=== PATIENT | male | born 1940 | race African-American/Black ===

== ENCOUNTER 2019-08-22 19:41 | Inpatient (IN) | payer OTHER ==
[~2019-08-22] VITALS: Ht 193 cm; Wt 111.1 kg
[2019-08-22 19:41] VITALS: BP_SYST 100
--- NOTE | 2019-08-22 19:41 | NUR ---
Patient to ER bed 1 to gown for evaluation. Side rails up.
--- NOTE | 2019-08-22 19:45 | NUR ---
ER at bedside examining patient.
--- NOTE | 2019-08-22 19:45 | NUR ---
Arina jeffries in ED - 08/23/19 at 0013 by [email or web address] Pt on 2L NC.
--- NOTE | 2019-08-22 19:45 | NUR ---
Pt on 4L NC.
--- NOTE | 2019-08-22 19:50 | NUR ---
Pt came to the ED from [facility]. Reported was made due to patient complaint of L sided nonradating chest pain at 1900. Denies SOB, n/v/d or fever. Reports he was recently treated 6 weeks ago for pulmonary embolis. Reports he has 10/10 lower back pain as well. No other complaints/injuries noted. Will cont. to monitor .
[2019-08-22] MEDS ORDERED: NACL 0.9% 1,000 ML IV ONE ×2 (20:00→22:00)
--- NOTE | 2019-08-22 20:00 | NUR ---
Pts hemoglobin is 5.0, however pt is Yarsanism. John charge nurse spoke to Catarina how is pts emergency contact and confirmed pts zoroastrianism and cannot have blood transfusion. reports needs to talk to the family's elder. ER MD made aware.
[2019-08-22 20:19] LABS: MEAN CORPUSCULAR HEMOGLOBIN 26 pg (27-31); MEAN CORPUSCULAR HGB CONC 29 % (32-36); MEAN CORPUSCULAR VOLUME 90 fL (79.0-98.0); PLATELET COUNT (AUTO) 132 K/uL (130-430); RED CELL DISTRIBUTION WIDTH 29.2 % (9.0-15.0); WHITE BLOOD COUNT (AUTO) 7.7 K/uL (4.8-10.8)
[2019-08-22 20:24] LABS: RED BLOOD CELL COUNT(AUTO) 1.92 MIL/uL (4.2-6.2)
[2019-08-22 20:27] LABS: HEMATOCRIT 17.3 % (36-54)
--- NOTE | 2019-08-22 20:28 | NUR ---
Pt.'s arrives and updated on POC. Informed her that pt.'s status is critical with Hgb 5. She also states that based on his congregational as Jehova's Witness, pt cannot receive Blood Products. Pt is being tx at [facility] and receives Egogen 20,000 Units q MWF for Chronic Anemia. Pt.'s also states that pt has been in and out of hospitals r/t sepsis x 3 episodes where he was treated at [facility], [facility], and [facility]. Pt was Dx with PE on 07/28/19 and has since been on Eloquis. While pt was in hospital, pt was on Heparin Drip. Pt has hx Prostate CA and Pituitary Adenoma and has been on Luupron since 12/2018. Dr. Lombardo notified.
[2019-08-22] MEDS ORDERED: fentaNYL CITRATE/PF 100 MCG/2 ML AMP IVP ONE ×2 (20:30→22:00)
[2019-08-22 20:52] LABS: BAND % (MANUAL) 1 % (0-6); LYMPHOCYTES % (MANUAL) 20 % (20-46); MONOCYTES % (MANUAL) 3 % (0-11)
[2019-08-22 20:53] LABS: METAMYELOCYTES % 2 % (0-0)
[2019-08-22 20:57] LABS: INR 1.5 (0.80-1.20); POTASSIUM 4.8 mmol/L (3.5-5.1); PROTHROMBIN TIME 14.9 SECS (9.5-12.5)
[2019-08-22 21:09] LABS: ANION GAP 14 (5-15); CALCIUM 9.4 mg/dL (8.4-11.0); CHLORIDE 109 mmol/L (98-107); CREATININE 1.64 mg/dL (0.55-1.30); GLUCOSE 103 mg/dL (70-99); SODIUM SERUM 143 mmol/L (136-145); UREA NITROGEN, BLOOD 38 mg/dL (8-21)
[2019-08-22 21:13] LABS: BILIRUBIN,URINE NEGATIVE (NEGATIVE); BLOOD, URINE 1+ (NEGATIVE); CLARITY/URINE CLEAR (CLEAR); COLOR,URINE YELLOW (YELLOW); GLUCOSE,URINE NEGATIVE (NEGATIVE); KETONES,URINE NEGATIVE (NEGATIVE); LEUKOCYTE ESTERASE ,URINE NEGATIVE (NEGATIVE); NITRITE, URINE NEGATIVE (NEGATIVE); PROTEIN URINE NEGATIVE (NEGATIVE); UROBILINOGEN,URINE 0.2 (0.2-1.0)
[2019-08-22 21:16] LABS: BACTERIA,URINE None Seen /HPF (None Seen); MUCUS,URINE 1+ /LPF (None Seen); WBC,URINE 0-3 /HPF (0-3)
[2019-08-22 21:25] LABS: ALANINE AMINOTRANSFERASE 16 U/L (12-78); ALBUMIN 2.1 g/dL (3.4-4.8); ASPARTATE AMINOTRANSFERASE 141 U/L (10-37); TOTAL BILIRUBIN 0.7 mg/dL (0.0-1.0)
--- NOTE | 2019-08-22 22:00 | NUR ---
Urine output is about 50cc from rees. MAREN STANTON made aware
[2019-08-22] MEDS ORDERED: DOCU-144 PO (22:10)
[2019-08-22] MEDS ORDERED: CHOL200026 PO (22:10)
[2019-08-22] MEDS ORDERED: ALLO300T2 PO (22:10)
[2019-08-22] MEDS ORDERED: MULT-1117 (22:10)
[2019-08-22] MEDS ORDERED: SENN8.6T19 PO (22:10)
[2019-08-22] MEDS ORDERED: PRED10TA PO (22:10)
[2019-08-22] MEDS ORDERED: OXYC-580 PO (22:10)
[2019-08-22] MEDS ORDERED: FLEETMO RC (22:10)
[2019-08-22] MEDS ORDERED: BISA5TAB10 PO (22:10)
[2019-08-22] MEDS ORDERED: CALC200T47 PO (22:10)
[2019-08-22] MEDS ORDERED: POLY1POW14 MC (22:10)
[2019-08-22] MEDS ORDERED: EPOE10002 IJ (22:10)
[2019-08-22] MEDS ORDERED: AMIN30LI2 PO (22:10)
[2019-08-22] MEDS ORDERED: ACET-2165 PO (22:10)
[2019-08-22] MEDS ORDERED: BISA10SU61 RC (22:10)
[2019-08-22] MEDS ORDERED: MELA3TAB64 PO (22:10)
[2019-08-22] MEDS ORDERED: PRO40 PO (22:10)
[2019-08-22] MEDS ORDERED: SERT25TA PO (22:10)
[2019-08-22] MEDS ORDERED: ASPI-862 PO (22:10)
[2019-08-22] MEDS ORDERED: APIX5TAB4 PO (22:10)
[2019-08-22] MEDS ORDERED: MOM PO (22:10)
--- NOTE | 2019-08-22 22:13 | NUR ---
m Medication reconciliation completed with information provided by pt. Any prior medication reconciliation on file was reviewed and corrected.
--- NOTE | 2019-08-22 22:14 | NUR ---
pt is full code, POLST in chart.
--- NOTE | 2019-08-22 22:25 | NUR ---
Dr. Ramon at bedside.
--- NOTE | 2019-08-22 22:25 | NUR ---
Arina jeffries in ED - 08/22/19 at [address] Aldrich at bedside.
--- NOTE | 2019-08-22 22:28 | NUR ---
Arina jeffries in ED - 08/22/19 at [email or web address] Ramon at bedside examing pt.
--- NOTE | 2019-08-22 22:56 | NUR ---
PT went to CT scan via [facility].
--- NOTE | 2019-08-22 22:57 | NUR ---
Patient will be admitted to care of Dr. Ramon. Admitted to ICU unit. Will go to room icu 4. Belongings list completed. Summary report printed. Report will be given at bedside.
[2019-08-22 23:30] VITALS: BP_SYST 104; BP_SYST 116
[2019-08-22] MEDS ORDERED: BISACODYL 5 MG TABLET.DR (DULCOLAX) PO PRN (23:30)
[2019-08-22] MEDS ORDERED: ACETAMINOPHEN 325 MG TABLET PO PRN (23:30)
[2019-08-22] MEDS ORDERED: MILK OF MAGNESIA 30 ML UDC PO PRN (23:30)
--- NOTE | 2019-08-22 23:30 | NUR ---
ADMISSION NOTE Received patient from ER via romain, received report from MAKAYLA MANCINI. Patient admitted with diagnosis of SEPSIS AND SEVERE ANEMIA. PT AAOX2 AND ABLE TO VERBALIZE NEEDS. NO S/S OF ACUTE DISTRESS NOTED. PT ON 2L NC. A-FIB IN MONITOR. RAC 20G, PATENT AND INTACT. BELL CATH IN PLACE DRAINING YELLOW URINE TO GRAVITY. HOB ELEVATED, BED IN LOWEST POSITION, CALL LIGHT IN REACH. WILL CONTINUE TO MONITOR PT.
--- NOTE | 2019-08-22 23:30 | NUR ---
Transfer to ICU via ACLS protocol. Licensed nurse present. IV present no signs or symptoms of infiltration.
[2019-08-23] VITALS (23 sets, daily range): BP systolic 96–129
--- NOTE | 2019-08-23 01:15 | NUR ---
RESTLESS PT RESTLESS AND AGITATED AT THIS TIME. PT SWIGGING RT ARM UP AND DOWN AND RIPPED IV TUBING IN THE PROCESS. BLOOD SEEN DRAINING FROM IV SITE WHERE TUBING HAD BEEN DISCONNECTED, HOWEVER IV SITE REMAINS INTACT. WILL CONTINUE TO MONITOR PT.
--- NOTE | 2019-08-23 01:28 | NUR ---
Javier Ramon s/w Keith.
--- NOTE | 2019-08-23 01:41 | NUR ---
Consultation Paged Reason for Consultation: Anemia, Prostate CA Was consult called: Y Person who was notified: Rahel Consulting Physician: Michel Lakhani (Aretha Leon is mechanical engineering draftsperson) Configuration Release Manager Ordering Physician: Dr. Ramon
--- NOTE | 2019-08-23 01:45 | NUR ---
Consultation Paged Reason for Consultation: Chest Pain Was consult called: Y Person who was notified: Rahel Consulting Physician: Edison Meraz (Dr. Gomez is conceptor) Promos Executive Producer Ordering Physician: Dr. Ramon
[2019-08-23] MEDS: D5/0.45 NS 1,000 ML IV SCH ×2 (01:51→13:29)
--- NOTE | 2019-08-23 02:07 | NUR ---
Second call for Dr. Ramon s/w Caty
--- NOTE | 2019-08-23 03:00 | NUR ---
DR. FEROZ STANTON NEVER RETURNED PAGE. AT BEDSIDE ABLE TO CALM PT DOWN. WILL CONTINUE TO MONITOR PT.
[2019-08-23] MEDS: oxyCODONE HCL 5 MG TABLET PO PRN ×2 (03:03→20:11)
--- NOTE | 2019-08-23 04:16 | NUR ---
BLOOD PRODUCTS PT AND PT FAMILY REFUSING BLOOD PRODUCTS DUE TO MORMON BELIEFS (CHRISTIAN). TYPE AND SCREEN ORDER CANCELLED AT THIS TIME. WILL CONTINUE TO MONITOR PT.
[2019-08-23 04:58] LABS: BASOPHILS % (AUTO) 0.2 % (0.0-2.0); EOSINOPHILS % (AUTO) 0.2 % (0.0-4.0); LYMPHOCYTES # (AUTO) 1.2 K/uL (1.0-5.5); LYMPHOCYTES % (AUTO) 18.7 % (20.5-51.5); MEAN CORPUSCULAR HEMOGLOBIN 26 pg (27-31); MEAN CORPUSCULAR HGB CONC 30 % (32-36); MEAN CORPUSCULAR VOLUME 88 fL (79.0-98.0); MONOCYTES # (AUTO) 0.3 K/uL (0.0-1.0); NEUTROPHILS % (AUTO) 75.9 % (40.0-70.0); PLATELET COUNT (AUTO) 107 K/uL (130-430); RED CELL DISTRIBUTION WIDTH 29.5 % (9.0-15.0); WHITE BLOOD COUNT (AUTO) 6.6 K/uL (4.8-10.8)
[2019-08-23 05:03] LABS: RED BLOOD CELL COUNT(AUTO) 1.78 MIL/uL (4.2-6.2)
[2019-08-23 05:04] LABS: HEMATOCRIT 15.6 % (36-54); HEMOGLOBIN 4.6 g/dL (14.0-18.0)
--- NOTE | 2019-08-23 06:11 | NUR ---
Third call for Dr. Ramon s/w Jean.
[2019-08-23] MEDS ORDERED: NS 250 ML IV ONE (07:30)
--- NOTE | 2019-08-23 07:34 | NUR ---
DR. FEROZ STANTON RETURNED PAGE AT THIS TIME. ORDERS RECEIVED AND WILL BE ENDORSED TO DAY SHIFT RN TO CARRY OUT.
--- NOTE | 2019-08-23 07:35 | NUR ---
ENDORSEMENT BEDSIDE REPORT GIVEN TO FREDDY MANCINI USING SBAR APPROACH.
--- NOTE | 2019-08-23 07:36 | NUR ---
AM Note Received report from operation shift supervisor RN. Pt oriented x2, forgetful. Right wrist restraint in place for safety, pulse present, no skin breakdown noted. IV site intact, patent. Pt and requesting to have smaller vials for blood or minimal amount necessary for blood draws.
--- NOTE | 2019-08-23 07:47 | NUR ---
Psych consult called: for Dr. Iglesias (Dr. Metz security professional), regarding constant restlessness and agitation, ordered by Dr. Ramon, spoke with Yesi at the exchange.
--- NOTE | 2019-08-23 07:53 | NUR ---
Dr. Worthington called unit, updated on pt, new orders made.
[2019-08-23] MEDS: DOCUSATE SODIUM 100 MG CAPSULE PO SCH ×2 (08:37→20:13)
[2019-08-23] MEDS: ALLOPURINOL 300 MG TABLET (ZYLOPRIM) PO SCH (08:37)
[2019-08-23] MEDS: PANTOPRAZOLE SODIUM 40 MG TAB PO SCH (08:37)
[2019-08-23] MEDS: ASPIRIN 325 MG TABLET (ECOTRIN) PO SCH (08:37)
[2019-08-23] MEDS: MULTIVITAMINS TAB 1 TABLET PO SCH (08:37)
[2019-08-23] MEDS: CHOLECALCIFEROL (VITAMIN D3) 2,000 UNIT TABLET PO SCH (08:37)
[2019-08-23] MEDS: SERTRALINE HCL 50 MG TABLET PO SCH (08:37)
[2019-08-23] MEDS: CALCIUM 500 MG/TAB PO SCH (08:37)
[2019-08-23] MEDS: FOLIC ACID 1 MG TABLET PO SCH (08:38)
[2019-08-23] MEDS: PREDNISONE 10 MG TABLET PO SCH (08:38)
[2019-08-23] MEDS: APIXABAN 2.5 MG TABLET PO SCH ×2 (08:38→20:12)
[2019-08-23] MEDS: MINERAL OIL 133 ML ENEMA RC SCH (08:39)
[2019-08-23] MEDS: POLYETHYLENE GLYCOL 3350, 17 GM/ POWD.PACK PO SCH (08:44)
[2019-08-23] MEDS: CYANOCOBALAMIN 1000 mCg TABLET PO SCH (08:48)
[2019-08-23 09:00] LABS: TOTAL IRON BIND. CAPACITY 178 ug/dL (250-450)
--- NOTE | 2019-08-23 09:00 | NUR ---
Pt received 250 ml NS bolus per Dr. Ramon's orders. Pt tolerated well.
[2019-08-23 09:37] LABS: ANION GAP 12 (5-15); CALCIUM 9.4 mg/dL (8.4-11.0); CHLORIDE 110 mmol/L (98-107); CREATININE 1.82 mg/dL (0.55-1.30); GLUCOSE 148 mg/dL (70-99); POTASSIUM 4.5 mmol/L (3.5-5.1); SODIUM SERUM 142 mmol/L (136-145); UREA NITROGEN, BLOOD 44 mg/dL (8-21)
[2019-08-23 09:52] LABS: ALANINE AMINOTRANSFERASE 15 U/L (12-78); ASPARTATE AMINOTRANSFERASE 176 U/L (10-37); TOTAL BILIRUBIN 0.6 mg/dL (0.0-1.0)
--- NOTE | 2019-08-23 11:15 | NUR ---
Dr. Caicedo and Dr. Worthington rounding at bedside.
--- NOTE | 2019-08-23 19:10 | NUR ---
PM SHIFT ASSESSMENT Pt is awake but lethargic, slow at answering questions. Pt is on O2 via NC @ 2L. SR with PAC/PVCs noted on monitor. Skin warm and dry. Right wrist restraint noted, no signs of skin issues. Arroyo catheter in place and draining to gravity. at bedside. Safety precautions in place, call light within reach. Will continue to monitor.
--- NOTE | 2019-08-23 19:27 | NUR ---
Endorsed plan of care to jumpbasting facing baster RN via SBAR. Pt states no pain or distress at this time and states he is not hungry.
[2019-08-23] MEDS: LEVOFLOXACIN 500 MG/D5W 100 ML IV SCH (20:10)
[2019-08-23] MEDS: MELATONIN 3 MG TABLET PO SCH (20:12)
[2019-08-23] MEDS: SENNOSIDES 8.6 MG TABLET PO SCH (20:12)
[2019-08-23] MEDS: LORazepam 1 MG TABLET PO PRN (22:20)
[2019-08-24] VITALS (24 sets, daily range): BP systolic 100–121
[2019-08-24] MEDS: D5/0.45 NS 1,000 ML IV SCH ×2 (02:17→16:19)
--- NOTE | 2019-08-24 06:48 | NUR ---
Nutrition Update Mehran Scale 16 noted. Pt admitted for Sepsis, Severe Anemia Diet: Regular BMI: 29.8 kg/m2 RD to follow per nutrition care standards.
[2019-08-24 06:51] LABS: BASOPHILS % (AUTO) 0.4 % (0.0-2.0); EOSINOPHILS % (AUTO) 0.4 % (0.0-4.0); LYMPHOCYTES # (AUTO) 1.1 K/uL (1.0-5.5); LYMPHOCYTES % (AUTO) 23.4 % (20.5-51.5); MEAN CORPUSCULAR HEMOGLOBIN 27 pg (27-31); MEAN CORPUSCULAR HGB CONC 30 % (32-36); MEAN CORPUSCULAR VOLUME 90 fL (79.0-98.0); MONOCYTES # (AUTO) 0.3 K/uL (0.0-1.0); MONOCYTES % (AUTO) 6.5 % (1.7-9.3); NEUTROPHILS # (AUTO) 3.2 K/uL (1.8-7.7); NEUTROPHILS % (AUTO) 69.3 % (40.0-70.0); PLATELET COUNT (AUTO) 97 K/uL (130-430); RED CELL DISTRIBUTION WIDTH 29.8 % (9.0-15.0); WHITE BLOOD COUNT (AUTO) 4.6 K/uL (4.8-10.8)
[2019-08-24 06:52] LABS: ANION GAP 8 (5-15); CALCIUM 9.5 mg/dL (8.4-11.0); CHLORIDE 111 mmol/L (98-107); CREATININE 1.46 mg/dL (0.55-1.30); GLUCOSE 99 mg/dL (70-99); SODIUM SERUM 142 mmol/L (136-145); UREA NITROGEN, BLOOD 43 mg/dL (8-21)
--- NOTE | 2019-08-24 07:12 | NUR ---
ENDORSEMENT Pt care endorsed to LIVE Mcclain using nursing SBAR.
[2019-08-24 07:21] LABS: HEMOGLOBIN 4.3 g/dL (14.0-18.0); RED BLOOD CELL COUNT(AUTO) 1.63 MIL/uL (4.2-6.2)
[2019-08-24 07:22] LABS: HEMATOCRIT 14.7 % (36-54)
--- NOTE | 2019-08-24 07:30 | NUR ---
Opening Note: Received plan of care via sbar from endorsing nurse Faviola MANCINI.
--- NOTE | 2019-08-24 07:50 | NUR ---
Critical Value Reported critical value for H/H to Dr. Regan working with Dr. Negron. No new orders. Patient is a Latter day.
--- NOTE | 2019-08-24 08:15 | NUR ---
Received call from Dr. Aldrich. Provided lab results including H/H. No new orders.
--- NOTE | 2019-08-24 08:30 | NUR ---
Physical Therapy order received and the chart reviewed. Chart review indicates patient's Hgb and HCT at critically low levels. Hold PT evaluation today. Plan: check tomorrow for medical status.
[2019-08-24] MEDS: CYANOCOBALAMIN 1000 mCg TABLET PO SCH (09:24)
[2019-08-24] MEDS: APIXABAN 2.5 MG TABLET PO SCH ×2 (09:25→20:51)
[2019-08-24] MEDS: FOLIC ACID 1 MG TABLET PO SCH (09:25)
[2019-08-24] MEDS: DOCUSATE SODIUM 100 MG CAPSULE PO SCH ×2 (09:25→20:50)
[2019-08-24] MEDS: PREDNISONE 10 MG TABLET PO SCH (09:25)
[2019-08-24] MEDS: CHOLECALCIFEROL (VITAMIN D3) 2,000 UNIT TABLET PO SCH (09:25)
[2019-08-24] MEDS: ALLOPURINOL 300 MG TABLET (ZYLOPRIM) PO SCH (09:26)
[2019-08-24] MEDS: ASPIRIN 325 MG TABLET (ECOTRIN) PO SCH (09:26)
[2019-08-24] MEDS: PANTOPRAZOLE SODIUM 40 MG TAB PO SCH (09:26)
[2019-08-24] MEDS: MINERAL OIL 133 ML ENEMA RC SCH (09:27)
[2019-08-24] MEDS: SERTRALINE HCL 50 MG TABLET PO SCH (09:27)
[2019-08-24] MEDS: CALCIUM 500 MG/TAB PO SCH (09:27)
[2019-08-24] MEDS: POLYETHYLENE GLYCOL 3350, 17 GM/ POWD.PACK PO SCH (09:27)
[2019-08-24] MEDS: MULTIVITAMINS TAB 1 TABLET PO SCH (09:28)
[2019-08-24] MEDS: EPOETIN ALFA 20,000 UNITS/ML VIAL SUBCUT SCH (10:32)
--- NOTE | 2019-08-24 11:15 | NUR ---
Nutrition Assessment (short note d/t lack of time) A-RD reviewed pt's current EMR including diet Hx, physician notes, nursing notes, pertinent labs/meds/procedures, care trends and care activity. Pt seen sleeping w/ at bedside. at bedside provided nutrition history and information during RD interview. Food preferences were also verbalized by pt's . RD to note in [employer]. Pt w/ difficulty chewing meat, and has not been eating well since July 03, 2019. It was also reported that pt's UBW is 330# in November of this year (94# weight loss in 10 months = 28% severe weight loss). Pt in at risk for malnutrition given his decreased appetite and poor PO intake, severe weight loss and catabolic illness. Pt may benefit from texture modification and addition of ONS for additional calories and protein. Anthropometrics verified by . Ht: 6'4 Wt:236#/111 kg %IBW: 117 IBW: 202#/92 kg ESTIMATED NUTRITIONAL REQUIREMENTS CALORIES/DAY: 3300-7366 kcal/day (30-35 kcal/kg IBW for Sepsis) PROTEIN/DAY: 74-138 gm/day (0.8-1.5 gm/kg IBW for Renal Dz predialysis and Sepsis) FLUID/DAY: per physician (Renal Dz) D: 1. Moderate Malnutrition r/t catabolic illness AEB 28% severe weight loss in 10 months, and poor PO intake for 2 months. I: 1. Recommend Mechanical soft finely chopped, Pureed meat, Ensure Clear BID and Ensure Enlive (strawberry flavor only)once a day. ONS will provide additional 830 kcal and 36 gm protein daily. 2. Recommend Megace to stimulate appetite. 3. Adhere to food preferences. 4. Encourage pt to increase PO intake. M: Monitor appetite and PO intake w/ goal of pt meeting at least 80% of estimated nutritional needs, labs trending WNL, normal GI function, skin integrity/wt maintenance. E: RD to F/U within 2-3 days ELAINE SOLORZANO
--- NOTE | 2019-08-24 11:26 | NUR ---
Conservation Assistant Recommendation 1. Recommend Mechanical soft finely chopped, Pureed meat, Ensure Clear BID and Ensure Enlive (strawberry flavor only)once a day. ONS will provide additional 830 kcal and 36 gm protein daily. 2. Recommend Megace to stimulate appetite. 3. Adhere to food preferences. 4. Encourage pt to increase PO intake. Please see Nutritional Assessment for details. JEANINE, RD
--- NOTE | 2019-08-24 13:00 | NUR ---
Patient is observed using accessory muscles to breath. Mental status changed from AOx2 to AOx1. Patient is lethargic. Heart rate increased to 130s. Paged Dr. Aldrich to report changes.
[2019-08-24] MEDS ORDERED: DEXTROSE 50% JECT 50 ML DISP.SYRIN IVP PRN (14:30)
[2019-08-24] MEDS ORDERED: *TPN PER PHARMACY XX PRN (14:30)
--- NOTE | 2019-08-24 14:30 | NUR ---
Dr. Victoria at bedside for Dr. Aldrich. Informed Dr. Victoria of increased heart rate and breathing pattern. Received orders for TPN, labs, and picc.
[2019-08-24 15:13] LABS: INR 1.6 (0.80-1.20); PROTHROMBIN TIME 15.8 SECS (9.5-12.5)
--- NOTE | 2019-08-24 16:22 | NUR ---
Office Assistant Receptionist: met with new ICU pt. and conduct an DCPA as well. CORRECTIONAL COUNSELOR went in to meet pt. who was sleeping and hard to awaken. CORRECTIONAL COUNSELOR was told his was at bedside, but just stepped out. CORRECTIONAL COUNSELOR will try again to meet with pt. and/or .
--- NOTE | 2019-08-24 19:22 | NUR ---
Closing Note: Provided plan of care via sbar to receiving nurse Zackary MANCINI.
--- NOTE | 2019-08-24 19:25 | NUR ---
PM ASSESSMENT Pt in bed with eyes closed resting comfortably. No signs of acute distress or discomfort noted. Family at bedside. Pt on 2L O2 via NC tolerating well with O2 sats @ 100% and even and unlabored breathing. Pt has a KUNAL picc infusing d5 1/2ns @ 75cc/hr and R AC 20g SL. Arroyo cath noted draining urine to gravity. Pt doesn't verbalize any needs at this time. Bed is locked and in lowest position, call light within reach, will cont to monitor pt.
[2019-08-24] MEDS: SENNOSIDES 8.6 MG TABLET PO SCH ×2 (20:50→21:00)
[2019-08-24] MEDS: MELATONIN 3 MG TABLET PO SCH (20:52)
[2019-08-24] MEDS: LEVOFLOXACIN 500 MG/D5W 100 ML IV SCH (20:53)
--- NOTE | 2019-08-24 22:30 | NUR ---
Pt in bed with eyes closed resting comfortably, no signs of acute distress or discomfort noted. Family at bedside. Bed is locked and in lowest position, call light within reach, will cont to monitor pt.
[2019-08-25] VITALS (24 sets, daily range): BP systolic 90–109
--- NOTE | 2019-08-25 00:30 | NUR ---
Pt resting in bed with eyes closed. No signs of acute distress or discomfort noted. Pt still on 2L O2 via NC, tolerating well with O2 sats @ 100% and even and unlabored breathing. Bed is locked and in lowest position, call light within reach, will cont to monitor.
[2019-08-25] MEDS: D5/0.45 NS 1,000 ML IV SCH ×2 (04:00→19:09)
--- NOTE | 2019-08-25 04:30 | NUR ---
Pt in bed with eyes closed resting comfortably, no signs of acute distress or discomfort noted. Bed is locked and in lowest position, call light within reach, will cont to monitor pt.
[2019-08-25 05:34] LABS: LYMPHOCYTES # (AUTO) 1.3 K/uL (1.0-5.5); MONOCYTES # (AUTO) 0.3 K/uL (0.0-1.0); NEUTROPHILS # (AUTO) 3.2 K/uL (1.8-7.7)
[2019-08-25 05:47] LABS: BASOPHILS % (AUTO) 0.7 % (0.0-2.0); EOSINOPHILS % (AUTO) 0.7 % (0.0-4.0); LYMPHOCYTES % (AUTO) 26.3 % (20.5-51.5); MEAN CORPUSCULAR HEMOGLOBIN 27 pg (27-31); MEAN CORPUSCULAR HGB CONC 31 % (32-36); MEAN CORPUSCULAR VOLUME 89 fL (79.0-98.0); MONOCYTES % (AUTO) 6.7 % (1.7-9.3); NEUTROPHILS % (AUTO) 65.6 % (40.0-70.0); PLATELET COUNT (AUTO) 100 K/uL (130-430); RED CELL DISTRIBUTION WIDTH 29.8 % (9.0-15.0); WHITE BLOOD COUNT (AUTO) 4.9 K/uL (4.8-10.8)
[2019-08-25 05:51] LABS: INR 1.7 (0.80-1.20)
[2019-08-25 05:53] LABS: RED BLOOD CELL COUNT(AUTO) 1.47 MIL/uL (4.2-6.2)
[2019-08-25 05:54] LABS: HEMATOCRIT 13.1 % (36-54)
[2019-08-25 06:07] LABS: ALANINE AMINOTRANSFERASE 13 U/L (12-78); ALBUMIN 1.6 g/dL (3.4-4.8); ANION GAP 7 (5-15); ASPARTATE AMINOTRANSFERASE 111 U/L (10-37); CHLORIDE 108 mmol/L (98-107); CREATININE 1.34 mg/dL (0.55-1.30); GLUCOSE 107 mg/dL (70-99); PHOSPHORUS 2.7 mg/dL (2.7-4.5); POTASSIUM 3.7 mmol/L (3.5-5.1); SODIUM SERUM 137 mmol/L (136-145); TOTAL BILIRUBIN 0.7 mg/dL (0.0-1.0); TRIGLYCERIDES 129 mg/dL (30-150); UREA NITROGEN, BLOOD 38 mg/dL (8-21)
[2019-08-25 06:11] LABS: PROTHROMBIN TIME 16.8 SECS (9.5-12.5)
--- NOTE | 2019-08-25 06:30 | NUR ---
Called Dr. Bass and made MD aware about pt's critical lab value of hbg 4.0 and hct 13.1. No new orders received. Pt is a jehovah witness. Will cont to monitor pt.
--- NOTE | 2019-08-25 07:00 | NUR ---
ENDORSEMENT Report given to oncoming dayshift RN and pt care was endorsed. No signs of acute distress or discomfort noted.
--- NOTE | 2019-08-25 07:18 | NUR ---
Opening Note: Received plan of care via sbar from endorsing nurse Zackary MANCINI.
[2019-08-25] MEDS: DOCUSATE SODIUM 100 MG CAPSULE PO SCH ×2 (08:08→20:06)
[2019-08-25] MEDS: POLYETHYLENE GLYCOL 3350, 17 GM/ POWD.PACK PO SCH (08:08)
[2019-08-25] MEDS: ALLOPURINOL 300 MG TABLET (ZYLOPRIM) PO SCH (08:08)
[2019-08-25] MEDS: MULTIVITAMINS TAB 1 TABLET PO SCH (08:09)
[2019-08-25] MEDS: SERTRALINE HCL 50 MG TABLET PO SCH (08:09)
[2019-08-25] MEDS: PREDNISONE 10 MG TABLET PO SCH (08:09)
[2019-08-25] MEDS: CALCIUM 500 MG/TAB PO SCH (08:09)
[2019-08-25] MEDS: FOLIC ACID 1 MG TABLET PO SCH (08:09)
[2019-08-25] MEDS: ASPIRIN 325 MG TABLET (ECOTRIN) PO SCH (08:09)
[2019-08-25] MEDS: CHOLECALCIFEROL (VITAMIN D3) 2,000 UNIT TABLET PO SCH (08:10)
[2019-08-25] MEDS: PANTOPRAZOLE SODIUM 40 MG TAB PO SCH (08:10)
[2019-08-25] MEDS: CYANOCOBALAMIN 1000 mCg TABLET PO SCH (08:10)
[2019-08-25] MEDS: APIXABAN 2.5 MG TABLET PO SCH ×2 (08:10→20:05)
[2019-08-25] MEDS: MINERAL OIL 133 ML ENEMA RC SCH (08:11)
[2019-08-25 09:52] LABS: PROSTATE SPECIFIC AG 372.9 ng/mL (0.0-4.0)
--- NOTE | 2019-08-25 10:31 | NUR ---
Physical Therapy chart review performed and patient is still at a medical status level that is unsafe to participate in treatment at this time. Physical Therapist spoke with the patient's RN who agrees that the evaluation should be held until further notice. RN will discuss with the MD.
[2019-08-25] MEDS: SOD FERRIC GLUC COMPLEX/SUC 125 MG in NS 100 ML IV SCH (10:32)
--- NOTE | 2019-08-25 10:55 | NUR ---
Dental Assistant Instructor Note MODELING ANALYST met with patient and daughter at bedside. Patient is somewhat alert and oriented but did not participate in the discussion. Daughter stated that patient was at [facility] for about ten days, then to [facility] for about two weeks. She confirmed that the family wants patient to remain a full code and not received blood transfusions. She will notify nursing staff to call MODELING ANALYST to met with patient's when she returns. MODELING ANALYST also notified Johny MANCINI. Will follow up. Addendum: 08/25/19 at 1705 by Nancy Loya LCSW MODELING ANALYST conducted a Discharge Plan Assessment and Social Service ICU Assessment MODELING ANALYST met with patient's and daughter at bedside. Discussed the difference between palliative and hospice care. At this time, they hope patient will recover and want him to have palliative care at the [facility], [facility], if a bed is available. If patient declines and they believe a DNR and hospice is needed, the plan would be for patient to go to a mosque friend's home on hospice. They have met with Dr Bass and would stay with his group. MODELING ANALYST let them know other palliative care/hospice options were available. Offered support and my card. Dental Assistant Instructor/Case Management/ Poultry Farm Laborer will remain available.
--- NOTE | 2019-08-25 12:50 | NUR ---
Completed CHG bath, linen change, oral care, and catheter perineal care. Patient tolerated procedure without complaint or complications. Patient was thankful.
--- NOTE | 2019-08-25 14:48 | NUR ---
Nutrition F/U A-RD reviewed pt's current EMR including diet Hx, physician notes, nursing notes, pertinent labs/meds/procedures, care trends, and care activity. 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 Lunch tray at bedside untouched. Per RN, pt has been eating very little d/t lethargy. Pt was able to take pills w/ help of per RN report. Pt ate a hot dog w/ Lisa yesterday for lunch as these are his favorite -- but otherwise, pt has not been eating much per RN report. TPN per pharmacy notification received 08/24/19 1430 -- plans for pt to start w/ TPN support later tonight. Current Diet Order: regular, finely chipped, Ensure Clear BID x1 day Current TPN Support Order: D50%, AA10% at 45 ml/hr via central line Provides: 1059 kcal/day, 50 gm protein/day, 1008 ml total volume/day, and GIR: 1.6 gm CHO/kg/min Meets: 38% of lower end of estimated caloric needs and 68% of lower end of estimated protein needs Ht: 6'4"/76" Wt:236#/107 kg %IBW: 117 IBW: 202#/92 kg ESTIMATED NUTRITIONAL REQUIREMENTS CALORIES/DAY: 0127-6713 kcal/day (30-35 kcal/kg IBW for Sepsis) PROTEIN/DAY: 74-138 gm/day (0.8-1.5 gm/kg IBW for Renal Dz predialysis and Sepsis) FLUID/DAY: per physician (Renal Dz) D: 1. Moderate Malnutrition r/t catabolic illness AEB 28% severe weight loss in 10 months, and poor PO intake for 2 months. *ongoing I: 1. Recommend mechanical soft finely chopped diet w/ pureed meat, Ensure Clear BID and Ensure Enlive daily (strawberry flavor only) 1x/day. ONS will provide additional 830 kcal/day and 36 gm protein/day. 2. Recommend megace to stimulate appetite. 3. Adhere to food preferences. 4. Encourage pt to increase PO intake. 5. Recommend TPN D50%, AA10% at 75 ml/hr via central line Provides: 1890 kcal/day, 90 gm protein/day, 1800 ml total volume/day, and GIR: 2.9 gm CHO/kg/min Meets: 68% of lower end of estimated caloric needs and 122% of lower end of estimated protein needs M: Monitor appetite and PO intake w/ goal of pt meeting at least 80% of estimated nutritional needs, labs trending WNL, normal GI function, skin integrity/wt maintenance. E: RD to F/U within 2-3 days
--- NOTE | 2019-08-25 14:57 | NUR ---
Dietitian Recommendations 1. Recommend mechanical soft finely chopped diet w/ pureed meat, Ensure Clear BID and Ensure Enlive daily. (strawberry flavor only) 1x/day. ONS will provide additional 830 kcal/day and 36 gm protein/day. 2. Recommend megace to stimulate appetite. 3. Adhere to food preferences. 4. Encourage pt to increase PO intake. 5. Recommend TPN D50%, AA10% at 75 ml/hr via central line Provides: 1890 kcal/day, 90 gm protein/day, 1800 ml total volume/day, and GIR: 2.9 gm CHO/kg/min Meets: 68% of lower end of estimated caloric needs and 122% of lower end of estimated protein needs LP, RD Please refer to Nutrition F/U for details.
[2019-08-25] MEDS: INSULIN REGULAR, HUMAN 100 UNITS/ML, 10 ML VIAL (humuLIN R) SUBCUT PRN (18:14)
--- NOTE | 2019-08-25 19:15 | NUR ---
PM ASSESSMENT Pt in bed with eyes closed resting comfortably. No signs of acute distress or discomfort noted. Family at bedside. Pt on 2L O2 via NC tolerating well with O2 sats @ 99% and even and unlabored breathing. Pt has a KUNAL picc infusing D5 1/2ns @ 75cc/hr and R AC 20g SL. Arroyo cath noted draining urine to gravity. Pt doesn't verbalize any needs at this time. Bed is locked and in lowest position, call light within reach, will cont to monitor pt.
--- NOTE | 2019-08-25 19:24 | NUR ---
Closing Note Gave plan of care to receiving nurse.
[2019-08-25] MEDS: oxyCODONE HCL 5 MG TABLET PO PRN (20:04)
[2019-08-25] MEDS: MELATONIN 3 MG TABLET PO SCH (20:06)
[2019-08-25] MEDS: SENNOSIDES 8.6 MG TABLET PO SCH (20:07)
[2019-08-25] MEDS: LEVOFLOXACIN 500 MG/D5W 100 ML IV SCH (20:09)
[2019-08-25] MEDS: LORazepam 1 MG TABLET PO PRN (20:32)
[2019-08-25] MEDS ORDERED: SODIUM ACETATE IV SCH ×9 (21:00)
[2019-08-25] MEDS ORDERED: FAT EMULSIONS 250 ML IV SCH (21:00)
[2019-08-25] MEDS ORDERED: POTASSIUM ACETATE IV SCH ×9 (21:00)
[2019-08-25] MEDS ORDERED: [UNRECOGNIZED DRUG - OTHER] IV SCH ×9 (21:00)
[2019-08-25] MEDS ORDERED: K PHOS IV SCH ×9 (21:00)
[2019-08-25] MEDS ORDERED: TPN CENTRAL IV SCH ×9 (21:00)
--- NOTE | 2019-08-25 22:00 | NUR ---
Central Line Dressing change performed at this time. Aseptic technique used. Pt tolerated well, will cont to monitor.
[2019-08-26] VITALS (20 sets, daily range): BP systolic 78–116
[2019-08-26] MEDS: oxyCODONE HCL 5 MG TABLET PO PRN ×2 (00:30→11:05)
--- NOTE | 2019-08-26 00:30 | NUR ---
Pt restless in bed at this time. Asked the pt if was in any pain and the pt nodded yes. Administered oxycodone 5 mg per MD order. Pt tolerated medication admin well, will cont to monitor pt.
[2019-08-26 05:38] LABS: BASOPHILS % (AUTO) 0.8 % (0.0-2.0); EOSINOPHILS % (AUTO) 0.6 % (0.0-4.0); LYMPHOCYTES # (AUTO) 1.3 K/uL (1.0-5.5); LYMPHOCYTES % (AUTO) 25.7 % (20.5-51.5); MEAN CORPUSCULAR HEMOGLOBIN 28 pg (27-31); MEAN CORPUSCULAR HGB CONC 31 % (32-36); MEAN CORPUSCULAR VOLUME 90 fL (79.0-98.0); MONOCYTES # (AUTO) 0.3 K/uL (0.0-1.0); MONOCYTES % (AUTO) 5.7 % (1.7-9.3); NEUTROPHILS # (AUTO) 3.5 K/uL (1.8-7.7); NEUTROPHILS % (AUTO) 67.2 % (40.0-70.0); PLATELET COUNT (AUTO) 100 K/uL (130-430); RED CELL DISTRIBUTION WIDTH 29.4 % (9.0-15.0); WHITE BLOOD COUNT (AUTO) 5.2 K/uL (4.8-10.8)
[2019-08-26] MEDS: INSULIN REGULAR, HUMAN 100 UNITS/ML, 10 ML VIAL (humuLIN R) SUBCUT PRN (05:50)
[2019-08-26 05:52] LABS: HEMATOCRIT 12.5 % (36-54); HEMOGLOBIN 3.9 g/dL (14.0-18.0)
[2019-08-26 06:02] LABS: ANION GAP 11 (5-15); CHLORIDE 109 mmol/L (98-107); CREATININE 1.23 mg/dL (0.55-1.30); GLUCOSE 179 mg/dL (70-99); PHOSPHORUS 2.6 mg/dL (2.7-4.5); POTASSIUM 3.7 mmol/L (3.5-5.1); SODIUM SERUM 140 mmol/L (136-145); UREA NITROGEN, BLOOD 40 mg/dL (8-21)
[2019-08-26] MEDS: D5/0.45 NS 1,000 ML IV SCH (06:31)
--- NOTE | 2019-08-26 07:15 | NUR ---
Shift Report Received shift report from night RN bedside.
--- NOTE | 2019-08-26 07:15 | NUR ---
ENDORSEMENT Report given to oncoming dayshift RN using SBAR format and pt care was endorsed. No signs of acute distress or discomfort noted.
--- NOTE | 2019-08-26 07:16 | NUR ---
AM Assessment PT on 2L Nasal Cannula. Sinus Tach. Unlabored breathing Pt resting without signs of distress. is bedside. Bed in lowest locked position. Lights off.
--- NOTE | 2019-08-26 07:40 | NUR ---
Dr Sara Bass bedside with PT and . Dr Bass noted to change Full Code Status to DNR and orders for hospice care. Will confirm with . Addendum: 08/26/19 at 0813 by Vinod Leblanc RN Confirmed with of DNR status.
[2019-08-26] MEDS: FOLIC ACID 1 MG TABLET PO SCH (09:00)
[2019-08-26] MEDS: ASPIRIN 325 MG TABLET (ECOTRIN) PO SCH (09:00)
[2019-08-26] MEDS: ALLOPURINOL 300 MG TABLET (ZYLOPRIM) PO SCH (09:00)
[2019-08-26] MEDS: MINERAL OIL 133 ML ENEMA RC SCH (09:00)
[2019-08-26] MEDS: APIXABAN 2.5 MG TABLET PO SCH (09:00)
[2019-08-26] MEDS: POLYETHYLENE GLYCOL 3350, 17 GM/ POWD.PACK PO SCH (09:00)
[2019-08-26] MEDS: CHOLECALCIFEROL (VITAMIN D3) 2,000 UNIT TABLET PO SCH (09:00)
[2019-08-26] MEDS: PANTOPRAZOLE SODIUM 40 MG TAB PO SCH (09:00)
[2019-08-26] MEDS: DOCUSATE SODIUM 100 MG CAPSULE PO SCH (09:00)
[2019-08-26] MEDS: SERTRALINE HCL 50 MG TABLET PO SCH (09:00)
[2019-08-26] MEDS: CALCIUM 500 MG/TAB PO SCH (09:00)
[2019-08-26] MEDS: CYANOCOBALAMIN 1000 mCg TABLET PO SCH (09:00)
[2019-08-26] MEDS: PREDNISONE 10 MG TABLET PO SCH (09:00)
[2019-08-26] MEDS: MULTIVITAMINS TAB 1 TABLET PO SCH (09:00)
[2019-08-26] MEDS: EPOETIN ALFA 20,000 UNITS/ML VIAL SUBCUT SCH (09:49)
[2019-08-26] MEDS: SOD FERRIC GLUC COMPLEX/SUC 125 MG in NS 100 ML IV SCH (10:08)
--- NOTE | 2019-08-26 10:15 | NUR ---
Cattle Manager at bedside with discussing hospice discharge plans.
[2019-08-26] MEDS ORDERED: MORPHINE 2 MG/ML INJ. SYRINGE IVP PRN ×2 (12:15)
--- NOTE | 2019-08-26 13:03 | NUR ---
Veneer Glue Jointer Feedback:Met with pt. and family re. Hospice AUTOMOTIVE GENERAL SALES MANAGER introduced self to family, Sully and two family friends, one being Adria Clements, [address] [facility], [id number]. Sully stated they family is ready for Hospice services. Live James and AUTOMOTIVE GENERAL SALES MANAGER spoke with family re. pts. care at a hospital vs. at home. said she discussed with her /pt who stated he did not want to in a facility. The family wants pt. to go to close family friend, Adria Clements' home, close to family and friends. AUTOMOTIVE GENERAL SALES MANAGER spoke to who stated they will go with [facility]. She just wanted to know if they take her insurance. AUTOMOTIVE GENERAL SALES MANAGER will make sure to ask company when she calls. AUTOMOTIVE GENERAL SALES MANAGER called [facility] who confirmed they service [facility] and take this type of insurance. They req. a packet at this time and will verify coverage. MWS called Outside [facility] Work[facility] for an update. Outside Maintenance Worker was still looking into benefits. Companions called, stated family will not have any out of pocket cost at a home. If they were change their minds and want to send pt. to a facility, cost is out of pocket. They will send rep. Jean-Baptiste out to [facility] by 2pm. AUTOMOTIVE GENERAL SALES MANAGER communicated this to CARPET JACKLIVE King. Addendum: 08/26/19 at 1444 by Zoë Sorenson AUTOMOTIVE GENERAL SALES MANAGER Veneer Glue Jointer Feedback: follow up care. AUTOMOTIVE GENERAL SALES MANAGER went to follow up with family re. hospice. and family were mtg with rep Estiven Palafox [phone] from [facility]. He was filling out paperwork with family. He stated he would need a couple of hours to get all the equipment to family friend Adria's , house where pt. will be receiving home hospice care. Sully signed a Patient Choice form. AUTOMOTIVE GENERAL SALES MANAGER went to speak to hydraulic specialist. re Dr. Salmeron/Deborah peres. Erika said she can get it, but wanted to speak to hospice rep. to ensure all equipement will be set up prior to pt. being D/C. Estiven will speak to Rn after he is done with paperwork with family. Addendum: 08/26/19 at 8051 by Zoë Sorenson MSW Veneer Glue Jointer Feedback: Follow up AUTOMOTIVE GENERAL SALES MANAGER met with family and hospice worker Estiven Palafox who stated all equipment will be delivered to [facility] prior to pts arrival. An ambulance will belt picker pt. at 7:30 tonight and transport pt. was in agreement with this plan. She stated she wants her to receive more pain meds as he is still moaning in discomfort. She was educated by Rn if pt. gets more meds there is risk his blood pressure may decrease. stated he is passing away regardless and does not want pt. in pain. AUTOMOTIVE GENERAL SALES MANAGER asked family to call if they have any questions. AUTOMOTIVE GENERAL SALES MANAGER spoke to Live Wilkes who shared with AUTOMOTIVE GENERAL SALES MANAGER that she asked family to call her once all equipment has been delivered to home. Live Wilkes stated she did not need anything else from AUTOMOTIVE GENERAL SALES MANAGER.
[2019-08-26] MEDS: MORPHINE 4 MG/ML INJ. SYRINGE IVP PRN ×4 (13:41→17:26)
--- NOTE | 2019-08-26 14:45 | NUR ---
Hospice Nurse Tariq RN from hospice services receiving patient information.
--- NOTE | 2019-08-26 19:20 | NUR ---
Endorsement Shift report given to night RN and Paramedics
--- NOTE | 2019-08-26 19:25 | NUR ---
Discharge paper work Discharge paper work signed and acknowledged by .
--- NOTE | 2019-08-26 19:36 | NUR ---
D/C Patient Patient given medication reconciliation form and D/C instructions. Exit Care provided. Patient family verbalized understanding. MD discussed with patient and family the results and treatment provided. Patient discharged to hospice care ([facility]. Patient in stable condition at this time, ID band removed. Skin intact. Patient educated on pain management. All belongings sent with patient.
[2019-08-26] MEDS ORDERED: SODIUM ACETATE IV SCH ×9 (21:00)
[2019-08-26] MEDS ORDERED: POTASSIUM ACETATE IV SCH ×9 (21:00)
[2019-08-26] MEDS ORDERED: [UNRECOGNIZED DRUG - OTHER] IV SCH ×9 (21:00)
[2019-08-26] MEDS ORDERED: K PHOS IV SCH ×9 (21:00)
[2019-08-26] MEDS ORDERED: TPN CENTRAL IV SCH ×9 (21:00)
== END 2019-08-26 19:38 | disposition hospice, home (50) | DRG 722 ==
LOC: SED 19:41 → SIC 22:40
PROVIDERS: ADMIT Internal Medicine; ATTEND Internal Medicine
PROC: 02HV33Z Insertion of Infusion Device into Superior Vena Cava, Percutaneous Approach (ICD-10-PCS; principal; 2019-08-24)
PROC: B548ZZA Ultrasonography of Superior Vena Cava, Guidance (ICD-10-PCS; 2019-08-24)
DX: C61 Malignant neoplasm of prostate (principal); E43 Unspecified severe protein-calorie malnutrition; C79.51 Secondary malignant neoplasm of bone; N17.9 Acute kidney failure, unspecified; G93.40 Encephalopathy, unspecified; N18.9 Chronic kidney disease, unspecified; K59.00 Constipation, unspecified; K21.9 Gastro-esophageal reflux disease without esophagitis; F32.9 Major depressive disorder, single episode, unspecified; M19.90 Unspecified osteoarthritis, unspecified site; M10.9 Gout, unspecified; Z53.8 Procedure and treatment not carried out for other reasons; I48.91 Unspecified atrial fibrillation; D63.8 Anemia in other chronic diseases classified elsewhere; Z68.29 Body mass index [BMI] 29.0-29.9, adult; Z88.8 Allergy status to other drugs, medicaments and biological substances; Z79.899 Other long term (current) drug therapy; Z74.01 Bed confinement status; Z91.041 Radiographic dye allergy status; Z79.82 Long term (current) use of aspirin; Z92.21 Personal history of antineoplastic chemotherapy; Z86.718 Personal history of other venous thrombosis and embolism; Z86.711 Personal history of pulmonary embolism; Z79.01 Long term (current) use of anticoagulants
CPT/HCPCS: 36415; 70450-TC; 71045; 71250-TC; 80048; 80053; 81000-TC; 82550-TC; 82728; 82962; 83540-TC; 83550-TC; 83605; 83735-TC; 83880; 84100-TC; 84153; 84478-TC; 84484; 85007; 85025; 85027; 85379; 85610-TC; 85730-TC; 87040-TC; 87081; 93005; 93306; 96361; 96374; 96375; 99285; C1751; J0885; J1815; J1956; J2270; J2916; J3010; J3475; J7050; J7512